=== PATIENT | female | born 1960 | race American Indian/Alaskan Native ===

== ENCOUNTER 2017-12-01 15:40 | Emergency (ER) | payer MEDICARE, OTHER ==
[2017-12-01 15:40] VITALS: BMI 62.9
[2017-12-01 16:07] VITALS: BP 113/77; PULSE 74; RESP 16; TEMP 97.9; O2SAT 98
[2017-12-01] MEDS ORDERED: Sodium Chloride 0.9% 1,000 ML IV SCH (16:30)
[2017-12-01] MEDS ORDERED: Iohexol 300 100 ML IJ ONE (17:32)
[2017-12-01] MEDS ORDERED: Iohexol 240 (50 ml) ONE (17:32)
[2017-12-01 17:45] LABS: BASO # 0.04 K/mm3 (0.0-2.0); BASO % 0.8 % (0.0-3.0); EOS # 0.2 (0.0-0.7); EOS % 3.9 % (1.5-5.0); GRAN # 2.49 (1.4-6.5); GRAN % 48.1 % (50.0-68.0); HEMOGLOBIN 13.2 g/dL (12.0-16.0); LYMPH % 39.1 % (22.0-35.0); MEAN CORPUSCULAR HEMOGLOBIN 26.7 pg (25.0-35.0); MEAN CORPUSCULAR HGB CONC 32.1 g/dl (31.0-37.0); MEAN PLATELET VOLUME 10.3 fl (7.0-11.0); MONO # 0.4 (0.1-0.6); MONO % 8.1 % (1.0-6.0); RBC 4.95 10^6/uL (3.5-6.1); RED CELL DISTRIBUTION WIDTH 14.6 % (11.5-14.5); WHITE BLOOD COUNT 5.2 10^3/ul (4.5-11.0)
[2017-12-01 19:03] LABS: TROPONIN I < 0.01 ng/mL
[2017-12-01 19:05] LABS: URINE BILIRUBIN NEGATIVE (NEGATIVE); URINE BLOOD NEGATIVE (NEGATIVE); URINE GLUCOSE (UA) NEGATIVE (NEGATIVE); URINE LEUKOCYTE ESTERASE NEGATIVE Leu/uL (NEGATIVE); URINE NITRATE NEGATIVE (NEGATIVE); URINE PROTEIN NEGATIVE mg/dL (<30 mg/dL); URINE UROBILINOGEN 0.2 E.U./dL (<1 E.U./dL)
[2017-12-01 19:06] LABS: URINE COLOR YELLOW (YELLOW)
[2017-12-01 19:07] LABS: URINE APPEARANCE CLEAR (CLEAR)
[2017-12-01 19:19] LABS: ALB/GLOB RATIO 1.2 (1.1-1.8); ALBUMIN 4.2 g/dL (3.0-4.8); ALT/SGPT 29 U/L (7-56); AMYLASE 63 U/L (35-125); AST/SGOT 36 U/L (14-36); BLOOD UREA NITROGEN 13 mg/dL (7-21); CALCIUM 9.8 mg/dL (8.4-10.5); GFR AFRICAN-AMERICAN > 60; GFR NON-AFRICAN AMERICAN > 60; LIPASE 114 U/L (23-300)
--- NOTE | 2017-12-01 19:49 | ED PDOC ---
Arrival/HPI - General Chief Complaint: Abdominal Pain Time Seen by Provider: 12/01/17 16:24 Historian: Patient - History of Present Illness Narrative History of Present Illness (Text): 12/01/17 19:46 A 57 year old female presents to the emergency department complaining of diffuse abdominal pain for the past few days. Patient notes nausea and sharp substernal chest pain only after swallowing food. Patient denies any changes in her diet, fever, chills, vomiting, shortness of breath, cough or any other complaints. Patient denies any recent travel. PMD: Dr. Demarco Time/Duration: Other (few days) Symptom Course: Unchanged Quality: Other Context: Home Past Medical History - Provider Review Nursing Documentation Reviewed: Yes - Infectious Disease Hx of Infectious Diseases: None - Tetanus Immunization Tetanus Immunization: Unknown - Reproductive Menopause: Yes - Cardiac Hx Cardiac Disorders: Yes Hx Hypertension: Yes Hx Pacemaker: No - Pulmonary Hx Sleep Apnea: Yes - Neurological Hx Neurological Disorder: No Hx Paralysis: No - HEENT Hx HEENT Disorder: No - Renal Hx Renal Disorder: No - Endocrine/Metabolic Hx Endocrine Disorders: Yes Hx Diabetes Mellitus Type 2: Yes - Hematological/Oncological Hx Blood Disorders: No Hx Blood Transfusions: No Hx Blood Transfusion Reaction: No - Integumentary Hx Dermatological Disorder: No - Musculoskeletal/Rheumatological Hx Musculoskeletal Disorders: No - Gastrointestinal Hx Diverticulitis: Yes - Genitourinary/Gynecological Hx Genitourinary Disorders: No - Psychiatric Hx Psychophysiologic Disorder: Yes Hx Anxiety: Yes Hx Depression: Yes Hx Emotional Abuse: No Hx Physical Abuse: No Hx Substance Use: No - Surgical History Hx Section: Yes Hx Cholecystectomy: Yes Hx Gastric Bypass Surgery: Yes Other/Comment: ovary surgery - Anesthesia Hx Anesthesia: Yes Hx Anesthesia Reactions: No Hx Malignant Hyperthermia: No - Suicidal Assessment Feels Threatened In Home Enviroment: No Family/Social History - Physician Review Nursing Documentation Reviewed: Yes Family/Social History: No Known Family HX Smoking Status: Never Smoked Hx Alcohol Use: No Hx Substance Use: No Hx Substance Use Treatment: No Allergies/Home Meds Allergies/Adverse Reactions: Allergies No Known Allergies Allergy (Verified 12/01/17 16:07) Home Medications: Home Meds Medication Instructions Recorded Confirmed Atorvastatin [Lipitor] 20 mg PO DAILY 04/15/12 12/01/17 Carvedilol [Coreg] 6.25 mg PO BID 04/15/12 12/01/17 Metformin HCl 500 mg PO BID 11/12/12 12/01/17 Omeprazole [PrilOSEC] 40 mg PO DAILY 04/28/15 12/01/17 Gabapentin [Neurontin] 100 mg PO TID 12/01/17 12/01/17 Lisinopril [Zestril] 20 mg PO DAILY 12/01/17 12/01/17 Meloxicam [Mobic] 15 mg PO DAILY 12/01/17 12/01/17 Nortriptyline [Nortriptyline HCl] 10 mg PO HS 12/01/17 12/01/17 Oxybutynin [Oxybutynin Chloride] 10 mg PO BID 12/01/17 12/01/17 PARoxetine [Paxil] 40 mg PO DAILY 12/01/17 12/01/17 clonazePAM [Klonopin] 1 mg PO BID PRN 12/01/17 12/01/17 Review of Systems - Physician Review All systems were reviewed & negative as marked: Yes - Review of Systems Constitutional: absent: Fevers, Night Sweats Respiratory: absent: SOB, Cough Cardiovascular: Chest Pain (only after swallowing food) Gastrointestinal: Abdominal Pain, Nausea. absent: Vomiting, Appetite Changes ( changes in diet) Physical Exam Vital Signs Reviewed: Yes Vital Signs Temp Pulse Resp BP Pulse Ox 12/01/17 16:02 97.9 F 74 16 113/77 98 Temperature: Afebrile Blood Pressure: Normal Pulse: Regular Respiratory Rate: Normal Appearance: Positive for: Well-Appearing, Non-Toxic, Comfortable Pain Distress: None Mental Status: Positive for: Alert and Oriented X 3 - Systems Exam Head: Present: Atraumatic, Normocephalic Pupils: Present: PERRL Extroacular Muscles: Present: EOMI Conjunctiva: Present: Normal Mouth: Present: Moist Mucous Membranes Neck: Present: Normal Range of Motion Respiratory/Chest: Present: Clear to Auscultation, Good Air Exchange. No: Respiratory Distress, Accessory Muscle Use Cardiovascular: Present: Regular Rate and Rhythm, Normal S1, S2. No: Murmurs Abdomen: Present: Tenderness (Mildy diffuse tenderness to palpation), Normal Bowel Sounds. No: Distention, Peritoneal Signs, Rebound, Guarding Back: Present: Normal Inspection Upper Extremity: Present: Normal Inspection. No: Cyanosis, Edema Lower Extremity: Present: Normal Inspection. No: Edema Neurological: Present: GCS=15, CN II-XII Intact, Speech Normal Skin: Present: Warm, Dry, Normal Color. No: Rashes Psychiatric: Present: Alert, Oriented x 3, Normal Insight, Normal Concentration Medical Decision Making ED Course and Treatment: 12/01/17 19:46 Impression: A 57 year old female with diffuse abdominal pain. Patient notes nausea and chest pain only when swallowing food. Plan: -- Abdomen and pelvis CT -- EKG -- Labs -- Urine culture and Urinalysis -- Pepcid, Zofran and IV fluids -- Reassess and disposition Progress Notes: EKG shows NSR at 71 BPM with 1st degree AV block. Interpreted by me. - Lab Interpretations Lab Results: 12/01/17 17:35 12/01/17 18:25 Lab Results 12/01/17 18:43: Urine Color Yellow, Urine Appearance Clear, Urine pH 6.0, Ur Specific Stanford 1.020, Urine Protein Negative, Urine Glucose (UA) Negative, Urine Ketones Negative, Urine Blood Negative, Urine Nitrate Negative, Urine Bilirubin Negative, Urine Urobilinogen 0.2, Ur Leukocyte Esterase Negative 12/01/17 18:25: Sodium 142, Potassium 4.4, Chloride 105, Carbon Dioxide 27, Anion Gap 14, BUN 13, Creatinine 0.8, Est GFR ( Amer) > 60, Est GFR (Non- Af Amer) > 60, Random Glucose 86, Calcium 9.8, Total Bilirubin 0.4, AST 36, ALT 29, Alkaline Phosphatase 130 H D, Lactate Dehydrogenase 699, Total Creatine Kinase 122, Troponin I < 0.01, Total Protein 7.6, Albumin 4.2, Globulin 3.4, Albumin/Globulin Ratio 1.2, Amylase 63, Lipase 114 12/01/17 17:35: WBC 5.2, RBC 4.95, Hgb 13.2, Hct 41.1, MCV 83.0, MCH 26.7, MCHC 32.1, RDW 14.6 H, Plt Count 199, MPV 10.3, Gran % 48.1 L, Lymph % (Auto) 39.1 H , Alfalfa % (Auto) 8.1 H, Eos % (Auto) 3.9, Baso % (Auto) 0.8, Gran # 2.49, Lymph # 2.0, Alfalfa # 0.4, Eos # 0.2, Baso # 0.04 I have reviewed the lab results: Yes - RAD Interpretation Radiology Orders: 12/01/17 16:27 ABDOMEN & PELVIS [ABD PELVIS PO & IV CONTRAST] [CT] Stat - Medication Orders Current Medication Orders: Sodium Chloride (Sodium Chloride 0.9%) 1,000 mls @ 100 mls/hr IV .Q10H JUDIE Last Admin: 12/01/17 18:27 Dose: 100 mls/hr eMAR Start Stop Document 12/01/17 18:27 OCS (Rec: 12/01/17 18:27 OCS [id number]) Intravenous Solution Start Date 12/01/17 Start Time 18:27 Discontinued Medications Famotidine (Pepcid) 20 mg IVP STAT STA Stop: 12/01/17 16:28 Last Admin: 12/01/17 17:31 Dose: 20 mg IVP Administration Document 12/01/17 17:31 OCS (Rec: 12/01/17 17:31 OCS [id number]) Charges for Administration # of IVP Administrations 1 Ondansetron HCl (Zofran Inj) 4 mg IVP STAT STA Stop: 12/01/17 16:28 Last Admin: 12/01/17 17:31 Dose: 4 mg IVP Administration Document 12/01/17 17:31 OCS (Rec: 12/01/17 17:31 OCS [id number]) Charges for Administration # of IVP Administrations 1 - Scribe Statement The provider has reviewed the documentation as recorded by the Tay Lorenz Provider Scribe Attestation: All medical record entries made by the Scribnicole were at my direction and personally dictated by me. I have reviewed the chart and agree that the record accurately reflects my personal performance of the history, physical exam, medical decision making, and the department course for this patient. I have also personally directed, reviewed, and agree with the discharge instructions and disposition. Disposition/Present on Arrival - Present on Arrival Any Indicators Present on Arrival: No History of DVT/PE: No History of Uncontrolled Diabetes: No Urinary Catheter: No History of Decub. Ulcer: No History Surgical Site Infection Following: None - Disposition Have Diagnosis and Disposition been Completed?: Yes Diagnosis: GERD (gastroesophageal reflux disease), Gastritis Disposition: HOME/ ROUTINE Disposition Time: 22:30 Patient Problems: Current Active Problems Problem Status Onset GERD (gastroesophageal reflux disease) Acute Gastritis Acute Condition: IMPROVED Discharge Instructions (ExitCare): Gastritis (ED) Additional Instructions: Thank you for letting us take care of you today. The emergency medical care you received today was directed at your acute symptoms. If you were prescribed any medication, please fill it and take as directed. It may take several days for your symptoms to resolve. Return to the Emergency Department if your symptoms worsen, do not improve, or if you have any other problems. Please contact your doctor or call one of the physicians/clinics you have been referred to that are listed on the Patient Visit Information form that is included in your discharge packet. Bring any paperwork you were given at discharge with you along with any medications you are taking to your follow up visit. Our treatment cannot replace ongoing medical care by a primary care provider (PCP) outside of the emergency department. Thank you for allowing the [facility] team to be part of your care today. Follow up with your doctor in the next 2-3 days for re-evaluation and further management. Prescriptions: Ranitidine HCl [Zantac] 150 mg PO BID #20 tablet Referrals: Nicole Rivera MD [Primary Care Provider] - Follow up with primary Forms: Dweho (Armenian)
--- NOTE | 2017-12-01 21:47 | CARD ---
APPROVED REPORT EKG Measurement Heart [id number] <Conclusion> Sinus rhythm with 1st degree AV block Otherwise normal ECG
--- NOTE | 2017-12-01 22:25 | CT ---
EXAM: CT Abdomen and Pelvis With Intravenous Contrast EXAM DATE/TIME: 12/01/2017 4:27 PM CLINICAL HISTORY: The patient age is 57 years old and is female; Pain; Abdominal pain; Acute; Additional info: Diffuse of abd pain h/o gastric bypass Facility exam id and description: Ct abdpelc abd pelvis po iv contrast TECHNIQUE: Axial computed tomography images of the abdomen and pelvis with intravenous contrast. All CT scans at this facility use one or more dose reduction techniques, viz.: automated exposure control; ma/kV adjustment per patient size (including targeted exams where dose is matched to indication; i.e. head); or iterative reconstruction technique. Coronal and sagittal reformatted images were created and reviewed. CONTRAST: 100 mL of OMNI 350 administered intravenously. COMPARISON: No relevant prior studies available. FINDINGS: Lower thorax: Atelectatic changes are identified within the medial aspect of the right lower lobe. Also in this region on series 3 image 42, there is a nodular consolidation measuring 1.1 cm. Mild atelectatic changes are visualized at the left lung base. There is coronary artery calcification. ABDOMEN: Liver: No mass. Gallbladder and bile ducts: Surgical clips are identified within the gallbladder fossa, compatible with cholecystectomy. Pancreas: Normal contour, without acute peripancreatic stranding. Spleen: No splenomegaly. Adrenals: There is mild nonspecific thickening of the left adrenal gland. Kidneys and ureters: No hydronephrosis. No solid mass. Stomach and bowel: Postoperative changes are identified, consistent with the clinical history of gastric bypass surgery. There is wall thickening of the antrum of the stomach, suggestive of gastritis. Moderate fecal material is identified within the colon. Appendix: No findings to suggest acute appendicitis. PELVIS: Bladder: No mass. Reproductive: Unremarkable as visualized. ABDOMEN and PELVIS: Intraperitoneal space: No free air. Bones/joints: There is mild anterior wedging of the T11 vertebral body, consistent with a compression fracture. The acuity of this finding is indeterminate. Hypertrophic degenerative changes are noted within the spine. Soft tissues: There is a herniation of fat into the umbilicus. Within the musculature of the anterior right thigh, there is another focal 6.9 cm lipomatous mass or lipoma. This extends out of the field of view of this study. Vasculature: There is atherosclerotic calcification of the abdominal aorta. No abdominal aortic aneurysm. Lymph nodes: There is a mildly enlarged left external iliac chain lymph node measuring 1.5 cm in length. Additional small intrapelvic lymph nodes are visualized. No significant retroperitoneal lymphadenopathy. IMPRESSION: 1. Postoperative changes are identified, consistent with the clinical history of gastric bypass surgery. There is wall thickening of the antrum of the stomach, suggestive of gastritis. 2. There is a herniation of fat into the umbilicus. 3. Within the musculature of the anterior right thigh, there is another focal 6.9 cm lipomatous mass or lipoma. This extends out of the field of view of this study. 4. There is mild anterior wedging of the T11 vertebral body, consistent with a compression fracture. The acuity of this finding is indeterminate. Clinical correlation and correlation with prior studies is recommended. 5. There is a mildly enlarged left external iliac chain lymph node measuring 1.5 cm in length. This is nonspecific as to etiology. 6. Atelectatic changes are identified within the medial aspect of the right lower lobe. Also in this region on series 3 image 42, there is a nodular consolidation measuring 1.1 cm. A follow-up chest CT is recommended. 7. Additional CT findings described above.
[2017-12-01] MEDS ORDERED: Iohexol 350 MG/100 ML VIAL ONE (23:24)
== END 2017-12-01 22:30 | disposition home or self-care (01) ==
LOC: ED 15:40
DX: K21.9 Gastro-esophageal reflux disease without esophagitis (principal); K29.70 Gastritis, unspecified, without bleeding; I10 Essential (primary) hypertension; E11.9 Type 2 diabetes mellitus without complications; Z98.84 Bariatric surgery status
CPT/HCPCS: 74177; 80053; 81003; 82150; 82550; 83615; 83690; 84484; 85025; 87086; 93005; 96374; 96375; 99283; J2405; J7040; Q9966; Q9967

== ENCOUNTER 2018-05-12 10:55 | Emergency (ER) | payer MEDICARE, OTHER ==
[2018-05-12 11:20] VITALS: RESP 18; TEMP 97.8; BMI 59.5
[2018-05-12] MEDS ORDERED: Oxycodone/Acetaminophen 5/325 mg Tab PO STA (11:52)
--- NOTE | 2018-05-12 12:02 | ED PDOC ---
Arrival/HPI - General Chief Complaint: Back Pain Time Seen by Provider: 05/12/18 11:49 Historian: Patient - History of Present Illness Narrative History of Present Illness (Text): 05/12/18 12:00 58 year old female, whose PMH includes hypertension, and diabetes, who presents to the emergency department complaining of right lower back pain since 4 months ago. Patient states the pain is daily and at time greater than 10/10. Patient reports movement and walking causes more discomfort and it takes her a couple of minutes in the morning to get ready before she can move around to do her chores. Patient denies any trauma, no radiation down right lower leg, no fever, chills, sweats, chest pain/shortness of breath/palpitations, no abd pain, no n/v , no numbness/tingling; no incontience, no dysuria, urinary bowel changes, vaginal or rectal numbness or tingling. Patient notes she was recently evaluation by Dr. Mckay since November due to abnormal spots found in right femur. 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 She is also complaining of bilateral thigh pain close to one year and patient does not know the results of her recent MRI on her left leg. No other complaints were made. pt is here for further eval PMD: Dr. Vela Neurologist: Dr. Duarte Orthopedic: Dr. Mckay Time/Duration: > month Symptom Onset: Gradual Symptom Course: Unchanged Severity Level: Severe Context: Standing, Walking, Home Past Medical History - Provider Review Nursing Documentation Reviewed: Yes - Travel History Have you recently traveled outside [place] w/in the past 3 mons?: No - Past History Past History: Non-Contributing - Infectious Disease Hx of Infectious Diseases: None - Tetanus Immunization Tetanus Immunization: Unknown - Reproductive Menopause: Yes Currently : No - Cardiac Hx Cardiac Disorders: Yes Hx Hypertension: Yes Hx Pacemaker: No - Pulmonary Hx Sleep Apnea: Yes - Neurological Hx Neurological Disorder: No Hx Paralysis: No - HEENT Hx HEENT Disorder: No - Renal Hx Renal Disorder: No - Endocrine/Metabolic Hx Endocrine Disorders: Yes Hx Diabetes Mellitus Type 2: Yes - Hematological/Oncological Hx Blood Disorders: No Hx Blood Transfusions: No Hx Blood Transfusion Reaction: No - Integumentary Hx Dermatological Disorder: No - Musculoskeletal/Rheumatological Hx Musculoskeletal Disorders: No - Gastrointestinal Hx Diverticulitis: Yes - Genitourinary/Gynecological Hx Genitourinary Disorders: No - Psychiatric Hx Psychophysiologic Disorder: Yes Hx Anxiety: Yes Hx Depression: Yes Hx Emotional Abuse: No Hx Physical Abuse: No Hx Substance Use: No - Surgical History Hx Section: Yes Hx Cholecystectomy: Yes Hx Gastric Bypass Surgery: Yes Other/Comment: ovary surgery - Anesthesia Hx Anesthesia: Yes Hx Anesthesia Reactions: No Hx Malignant Hyperthermia: No - Suicidal Assessment Feels Threatened In Home Enviroment: No Family/Social History - Physician Review Nursing Documentation Reviewed: Yes Family/Social History: Unknown Family HX Smoking Status: Never Smoked Hx Alcohol Use: No Hx Substance Use: No Hx Substance Use Treatment: No Allergies/Home Meds Allergies/Adverse Reactions: Allergies No Known Allergies Allergy (Verified 12/01/17 16:07) Home Medications: Home Meds Medication Instructions Recorded Confirmed Atorvastatin [Lipitor] 20 mg PO DAILY 04/15/12 12/01/17 Carvedilol [Coreg] 6.25 mg PO BID 04/15/12 12/01/17 Metformin HCl 500 mg PO BID 11/12/12 12/01/17 Omeprazole [PrilOSEC] 40 mg PO DAILY 04/28/15 12/01/17 Gabapentin [Neurontin] 100 mg PO TID 12/01/17 12/01/17 Lisinopril [Zestril] 20 mg PO DAILY 12/01/17 12/01/17 Meloxicam [Mobic] 15 mg PO DAILY 12/01/17 12/01/17 Nortriptyline [Nortriptyline HCl] 10 mg PO HS 12/01/17 12/01/17 Oxybutynin [Oxybutynin Chloride] 10 mg PO BID 12/01/17 12/01/17 PARoxetine [Paxil] 40 mg PO DAILY 12/01/17 12/01/17 clonazePAM [Klonopin] 1 mg PO BID PRN 12/01/17 12/01/17 Review of Systems - Review of Systems Constitutional: absent: Fevers Eyes: Normal ENT: Normal Respiratory: absent: SOB Cardiovascular: absent: Chest Pain Gastrointestinal: absent: Abdominal Pain Genitourinary Female: absent: Dysuria, Frequency, Urine Output Changes, Vaginal Discharge Musculoskeletal: Back Pain (lower back pain ), Other (b/l thigh/leg pain) Skin: absent: Rash Neurological: absent: Headache Endocrine: absent: Diaphoresis Hemo/Lymphatic: Normal Psychiatric: Normal Physical Exam - Physical Exam Narrative Physical Exam (Text): 05/12/18 General: alert/awake, GCS = 15, oriented x 3, resting in bed, uncomfortable, cooperative, interactive; mild distress due to pain Head: NC/AT EYE: PERRLA, EOMI, sclera anicteric, no nystagmus, no photophobia; visual field intact b/l Facial: WNL Oral: uvula/tongue are midline, no exudate/lesions, no drooling/stridor, no dysphonia; intact dentitions NECK: intact ROM, no midline tenderness, no nuchal rigidity, no meningeal signs ; no step off Chest: CTA b/l, no w/r/r; no tachypenia, no accessory muscle use noted Chest Wall: no crepitus, no lesions, no gross deformities, no focal tenderness Cardiac: +S1, +S2, no m/r/r, no tachycardia Abdominal: +BS, soft/nd/nt, well nourished patient; no masses/rebound/guarding/ rigidity; no zamarripa's sign, no mcburney's point tenderness Extremities: intact ROM, strength 5/5 grossly intact in all limbs, neurovasc intact b/l; + ambulatory; reflex +2/2; SLR to right leg ~ 35-40 degrees, no pitting edema noted, no doron's sign noted b/l BACK: no step off, no midline tenderness, NO crepitus, no gross deformities noted; Intact ROM SKIN: cap refill < 1 sec, no ulcerations, no petechiae, no rashes; no pallor noted NEURO: CNII-XII WNL, no facial asymmetries, no slurr speech, oriented x 3 NIH stroke scale ~ 0 Psych: normal insight, normal affect; follows command with ease Vital Signs Reviewed: Yes Vital Signs Temp Pulse Resp BP Pulse Ox 05/12/18 16:50 97.8 F 75 18 114/74 96 05/12/18 15:00 75 18 114/74 96 05/12/18 13:46 79 18 111/69 95 05/12/18 11:19 97.8 F 84 18 113/73 95 Temperature: Afebrile Blood Pressure: Normal Pulse: Regular Respiratory Rate: Normal Appearance: Positive for: Well-Appearing, Non-Toxic, Uncomfortable. No: Ill- Appearing, Unkept Pain Distress: Mild Mental Status: Positive for: Alert and Oriented X 3 - Systems Exam Head: Present: Atraumatic, Normocephalic Medical Decision Making ED Course and Treatment: 05/12/18 Impression: right sided back pain x months with abnl femur findings concern for tumor I have considered all Differential Diagnosis regarding pt's chief medical complaints/clinical findings included but are not limited to: r/o lesions, r/o fx; likely musculoskeletal defect Plan: -- CT lumbar spine -- CT thoracic spine -- EKG -- Labs -- Percocet -- Right hip x-ray -- Right Tibia-fibula x-ray -- Urinalysis -- Reassess and disposition Progress Notes: 1400 pt is doing well pt is comfortable pt states the percocet help tremendously pt is awaiting for her diagnostics/labs 05/12/18 14:[address] Esparza, pt's orthopedists, made aware of pt's emergent medical complaints and is in agreement with emergency department mgt/txt; pt can follow up with him or others as an outpt; Dr Esparza is aware that pt is seeking 2nd opinion 05/12/18 14:44 pt remained comfortable, awaiting Urinalysis results 05/12/18 1530 pt remained comfortable pt is made aware of her medical results pt is encouraged to avoid prolonged standing/walking, weight lifting pt is encouraged weight loss pt will follow up as directed pt will be discharged home Re-evaluation Time: 14:36 Reassessment Condition: Improved - Lab Interpretations Lab Results: 05/12/18 11:55 05/12/18 11:55 Lab Results 05/12/18 16:20: Urine Color Yellow, Urine Appearance Clear, Urine pH 7.0, Ur Specific [place] 1.015, Urine Protein Negative, Urine Glucose (UA) Negative, Urine Ketones Negative, Urine Blood Negative, Urine Nitrate Negative, Urine Bilirubin Negative, Urine Urobilinogen 1.0 H, Ur Leukocyte Esterase Negative 05/12/18 13:57: POC Glucose (mg/dL) 75 05/12/18 11:55: Sodium 145, Potassium 4.7, Chloride 107, Carbon Dioxide 31, Anion Gap 13, BUN 14, Creatinine 0.8, Est GFR ( Amer) > 60, Est GFR (Non- Af Amer) > 60, Random Glucose 86, Calcium 9.7, Total Bilirubin 0.4, AST 33, ALT 30, Alkaline Phosphatase 101, Troponin I < 0.01, Total Protein 7.2, Albumin 4.0 , Globulin 3.3, Albumin/Globulin Ratio 1.2, Lipase 86 05/12/18 11:55: PT 11.5, INR 1.00, APTT 30.4 05/12/18 11:55: WBC 4.2 L, RBC 4.95, Hgb 12.8, Hct 40.2, MCV 81.2, MCH 25.9, MCHC 31.8, RDW 14.9 H, Plt Count 195, MPV 9.1, Gran % 52.7, Lymph % (Auto) 38.4 H, [place] % (Auto) 5.8, Eos % (Auto) 2.6, Baso % (Auto) 0.5, Gran # 2.20, Lymph # (Auto) 1.6, [place] # (Auto) 0.2, Eos # (Auto) 0.1, Baso # (Auto) 0.02, ESR 17 I have reviewed the lab results: Yes Interpretation: All labs normal - RAD Interpretation Narrative RAD Interpretations (Text): 05/12/18 13:[address]: Creator : Luc Bryant MD FINDINGS: VERTEBRAE:Unremarkable. No fracture. Normal alignment. DISCS/SPINAL CANAL/NEURAL FORAMINA: L1-2: Unremarkable. L2-3: Unremarkable. L3-4: Unremarkable. L4-5: Moderate facet arthropathy. Bilateral foraminal stenosis L5-S1: Unremarkable. PARASPINAL SOFT TISSUES:Unremarkable. OTHER FINDINGS:Degenerative changes in the sacroiliac joints with vacuum phenomenon IMPRESSION: Facet arthropathy and foraminal stenosis at L4-5. Degenerative changes in the sacroiliac joints. No evidence of metastatic disease 05/12/18 13:35 Hip/Pelvis x-ray: Creator : Luc Bryant MD FINDINGS: BONES: Normal. No fracture. JOINTS: Normal. SOFT TISSUES: Normal. OTHER FINDINGS: None. IMPRESSION: Normal radiographs of right hip. 05/12/18 13:[address]: Creator : Luc Bryant MD FINDINGS: VERTEBRAE: Unremarkable. No fracture. Normal alignment. There is mild curvature of the spine convex to the right with a Francois angle of 14 degrees DISCS/SPINAL CANAL/NEURAL FORAMINA: Within the limits of the CT technique, no disc herniation seen. No central canal or neural foraminal stenosis.. PARASPINAL SOFT TISSUES: Unremarkable. OTHER FINDINGS: Unremarkable. IMPRESSION: No acute findings 05/12/18 13:35 Tibial/Fibula x-ray: Creator : Luc Bryant MD FINDINGS: BONES: No fracture or destructive lesion. JOINT SPACES: Unremarkable. OTHER FINDINGS: None. IMPRESSION: Unremarkable radiographs of the right tibia and fibula. Radiology Orders: 05/12/18 11:50 LUMBAR SPINE W/O CONTRAST [CT] Stat 05/12/18 11:51 THORACIC SPINE W/O CONT [CT] Stat HIP MIN 2V W/ PELVIS RT [RAD] Stat TIBIA FIBULA RIGHT [RAD] Stat Sociology Faculty Member: Radiologist - EKG Interpretation EKG Interpretation (Text): 05/12/18 17:20 Sinus rhythm at 75 bpm with 1st degree av block, LAD, no st-t changes, ABNL EKG ; unchanged compare with old ekg 11/2017 Interpreted by ED Physician: Yes Type: 12 lead EKG Comparison: Similar to previous EKG - Medication Orders Current Medication Orders: Discontinued Medications Oxycodone/Acetaminophen (Percocet 5/325 Mg Tab) 1 tab PO STAT STA Stop: 05/12/18 11:53 Last Admin: 05/12/18 12:11 Dose: 1 tab [facility] Pain Assessment Document 05/12/18 12:11 OCS (Rec: 05/12/18 12:12 [id number] Pain Reassessment Is this a pain reassessment? No Sleep Is patient sleeping during reassessment? No Presence of Pain Presence of Pain Yes Pain Scale Used Pain Scale Used Numeric Location Left, Right or Bilateral Left Upper or Lower Lower Pain Location Body Site Back Description Description Constant Intensity of Pain at present 10 Aggravating Factors ADL's - Scribe Statement The provider has reviewed the documentation as recorded by the Scribe Lisa Pastor Provider Scribe Attestation: All medical record entries made by the Scribe were at my direction and personally dictated by me. I have reviewed the chart and agree that the record accurately reflects my personal performance of the history, physical exam, medical decision making, and the department course for this patient. I have also personally directed, reviewed, and agree with the discharge instructions and disposition. Disposition/Present on Arrival - Present on Arrival Any Indicators Present on Arrival: No History of DVT/PE: No History of Uncontrolled Diabetes: No Urinary Catheter: No History of Decub. Ulcer: No History Surgical Site Infection Following: None - Disposition Have Diagnosis and Disposition been Completed?: Yes Diagnosis: Lumbar strain, Low back pain, Lipoma of lower extremity Disposition: HOME/ ROUTINE Disposition Time: 16:42 Patient Plan: Discharge Condition: STABLE Discharge Instructions (ExitCare): Low Back Pain in Adults, Lipoma , Back Exercises Print Language: DANISH Additional Instructions: Make sure to see your doctor in 1-2 days DRINK PLENTY OF FLUIDS take your medications as prescribed AVOID heavy lifting AVOID prolonged standing weight control is encouraged RETURN TO ED IF worse pain, cant breath, persistent vomiting, high fever >101- 102 for hours, altered behavior, slurr speech, facial changes, focal weakness ( arm/leg or both), unable to urinate, heavy/persistent bleeding, passing out, chest pain, or other medical emergencies Prescriptions: Ibuprofen [Motrin] 400 mg PO TID PRN #30 tab PRN Reason: Pain, Mild (1-3) oxyCODONE/Acetaminophen [Percocet 5/325 mg Tab] 1 tab PO TID PRN #10 tab PRN Reason: Pain, Moderate (4-7) Referrals: [facility] [place] [Outside] - Follow up with primary [facility] [Outside] - Follow up with primary [facility] [Outside] - Follow up with primary Mian Geronimo MD [Staff Provider] - Follow up with primary Luc Flowers DO [Staff Provider] - Follow up with primary Brad Richardson DO [Staff Provider] - Follow up with primary Forms: [facility] (Greek)
--- NOTE | 2018-05-12 12:03 | ED PDOC ---
Arrival/HPI - General Chief Complaint: Back Pain Time Seen by Provider: 05/12/18 11:49 Historian: Patient - History of Present Illness Time/Duration: > month (4-5) Past Medical History - Infectious Disease Hx of Infectious Diseases: None - Tetanus Immunization Tetanus Immunization: Unknown - Reproductive Menopause: Yes - Cardiac Hx Cardiac Disorders: Yes Hx Hypertension: Yes Hx Pacemaker: No - Pulmonary Hx Sleep Apnea: Yes - Neurological Hx Neurological Disorder: No Hx Paralysis: No - HEENT Hx HEENT Disorder: No - Renal Hx Renal Disorder: No - Endocrine/Metabolic Hx Endocrine Disorders: Yes Hx Diabetes Mellitus Type 2: Yes - Hematological/Oncological Hx Blood Disorders: No Hx Blood Transfusions: No Hx Blood Transfusion Reaction: No - Integumentary Hx Dermatological Disorder: No - Musculoskeletal/Rheumatological Hx Musculoskeletal Disorders: No - Gastrointestinal Hx Diverticulitis: Yes - Genitourinary/Gynecological Hx Genitourinary Disorders: No - Psychiatric Hx Psychophysiologic Disorder: Yes Hx Anxiety: Yes Hx Depression: Yes Hx Emotional Abuse: No Hx Physical Abuse: No Hx Substance Use: No - Surgical History Hx Section: Yes Hx Cholecystectomy: Yes Hx Gastric Bypass Surgery: Yes Other/Comment: ovary surgery - Anesthesia Hx Anesthesia: Yes Hx Anesthesia Reactions: No Hx Malignant Hyperthermia: No - Suicidal Assessment Feels Threatened In Home Enviroment: No Family/Social History Smoking Status: Never Smoked Hx Alcohol Use: No Hx Substance Use: No Hx Substance Use Treatment: No Allergies/Home Meds Allergies/Adverse Reactions: Allergies No Known Allergies Allergy (Verified 12/01/17 16:07) Home Medications: Home Meds Medication Instructions Recorded Confirmed Atorvastatin [Lipitor] 20 mg PO DAILY 04/15/12 12/01/17 Carvedilol [Coreg] 6.25 mg PO BID 04/15/12 12/01/17 Metformin HCl 500 mg PO BID 11/12/12 12/01/17 Omeprazole [PrilOSEC] 40 mg PO DAILY 04/28/15 12/01/17 Gabapentin [Neurontin] 100 mg PO TID 12/01/17 12/01/17 Lisinopril [Zestril] 20 mg PO DAILY 12/01/17 12/01/17 Meloxicam [Mobic] 15 mg PO DAILY 12/01/17 12/01/17 Nortriptyline [Nortriptyline HCl] 10 mg PO HS 12/01/17 12/01/17 Oxybutynin [Oxybutynin Chloride] 10 mg PO BID 12/01/17 12/01/17 PARoxetine [Paxil] 40 mg PO DAILY 12/01/17 12/01/17 clonazePAM [Klonopin] 1 mg PO BID PRN 12/01/17 12/01/17 Physical Exam Vital Signs Temp Pulse Resp BP Pulse Ox 05/12/18 11:19 97.8 F 84 18 113/73 95 Medical Decision Making - RAD Interpretation Radiology Orders: 05/12/18 11:50 LUMBAR SPINE W/O CONTRAST [CT] Stat 05/12/18 11:51 THORACIC SPINE W/O CONT [CT] Stat Hip right [HIP MIN 4V W/ PELVIS RT] [RAD] Stat TIBIA FIBULA RIGHT [RAD] Stat - Medication Orders Current Medication Orders: Discontinued Medications Oxycodone/Acetaminophen (Percocet 5/325 Mg Tab) 1 tab PO STAT STA Stop: 05/12/18 11:53 Disposition/Present on Arrival - Present on Arrival History of DVT/PE: No History of Uncontrolled Diabetes: No Urinary Catheter: No History of Decub. Ulcer: No History Surgical Site Infection Following: None - Disposition
[2018-05-12 12:36] LABS: BASO # 0.02 K/mm3 (0.0-2.0); BASO % 0.5 % (0.0-3.0); EOS # 0.1 (0.0-0.7); EOS % 2.6 % (1.5-5.0); GRAN # 2.2 (1.4-6.5); GRAN % 52.7 % (50.0-68.0); HEMOGLOBIN 12.8 g/dL (12.0-16.0); LYMPH # 1.6 (1.2-3.4); LYMPH % 38.4 % (22.0-35.0); MEAN CELL VOLUME 81.2 fl (80.0-105.0); MEAN CORPUSCULAR HEMOGLOBIN 25.9 pg (25.0-35.0); MEAN CORPUSCULAR HGB CONC 31.8 g/dl (31.0-37.0); MEAN PLATELET VOLUME 9.1 fl (7.0-11.0); MONO # 0.2 (0.1-0.6); MONO % 5.8 % (1.0-6.0); RBC 4.95 10^6/uL (3.5-6.1); RED CELL DISTRIBUTION WIDTH 14.9 % (11.5-14.5); WHITE BLOOD COUNT 4.2 10^3/ul (4.5-11.0)
--- NOTE | 2018-05-12 12:51 | CT ---
PROCEDURE: CT Thoracic Spine without contrast HISTORY: right lower back pain, no trauma, right fem tumo COMPARISON: None. TECHNIQUE: Axial computed tomography images were obtained of the thoracic spine without intravenous contrast. Coronal and sagittal reformatted images were created and reviewed. Radiation dose: Total exam DLP = 1214 mGy-cm. This CT exam was performed using one or more of the following dose reduction techniques: Automated exposure control, adjustment of the mA and/or kV according to patient size, and/or use of iterative reconstruction technique. FINDINGS: VERTEBRAE: Unremarkable. No fracture. Normal alignment. There is mild curvature of the spine convex to the right with a Francois angle of 14 degrees DISCS/SPINAL CANAL/NEURAL FORAMINA: Within the limits of the CT technique, no disc herniation seen. No central canal or neural foraminal stenosis.. PARASPINAL SOFT TISSUES: Unremarkable. OTHER FINDINGS: Unremarkable. IMPRESSION: No acute findings
[2018-05-12 12:59] LABS: PARTIAL THROMBOPLASTIN TIME 30.4 Seconds (25.1-36.5); PROTHROMBIN TIME 11.5 SECONDS (9.4-12.5)
--- NOTE | 2018-05-12 13:26 | CT ---
PROCEDURE: CT Lumbar Spine without contrast HISTORY: right back pain, no trauma, right femur tumor COMPARISON: None. TECHNIQUE: Axial computed tomography images were obtained of the lumbar spine without the use of intravenous contrast. Coronal and sagittal reformatted images were created and reviewed. Radiation dose: Total exam DLP = 1442 mGy-cm. This CT exam was performed using one or more of the following dose reduction techniques: Automated exposure control, adjustment of the mA and/or kV according to patient size, and/or use of iterative reconstruction technique. FINDINGS: VERTEBRAE: Unremarkable. No fracture. Normal alignment. DISCS/SPINAL CANAL/NEURAL FORAMINA: L1-2: Unremarkable. L2-3: Unremarkable. L3-4: Unremarkable. L4-5: Moderate facet arthropathy. Bilateral foraminal stenosis L5-S1: Unremarkable. PARASPINAL SOFT TISSUES: Unremarkable. OTHER FINDINGS: Degenerative changes in the sacroiliac joints with vacuum phenomenon IMPRESSION: Facet arthropathy and foraminal stenosis at L4-5 Degenerative changes in the sacroiliac joints. No evidence of metastatic disease
--- NOTE | 2018-05-12 13:33 | RAD ---
PROCEDURE: Radiographs of the right tibia and fibula. HISTORY: few days ago, bumped into a curb R lower leg pain COMPARISON: None available. TECHNIQUE: Frontal and lateral views obtained. FINDINGS: BONES: No fracture or destructive lesion. JOINT SPACES: Unremarkable. OTHER FINDINGS: None. IMPRESSION: Unremarkable radiographs of the right tibia and fibula.
--- NOTE | 2018-05-12 13:34 | RAD ---
PROCEDURE: Right Hip and pelvis Radiographs. HISTORY: right leg pain COMPARISON: None. FINDINGS: BONES: Normal. No fracture. JOINTS: Normal. SOFT TISSUES: Normal. OTHER FINDINGS: None. IMPRESSION: Normal radiographs of right hip.
[2018-05-12 14:34] LABS: ALB/GLOB RATIO 1.2 (1.1-1.8); ALT/SGPT 30 U/L (7-56); AST/SGOT 33 U/L (14-36); BLOOD UREA NITROGEN 14 mg/dL (7-21); CALCIUM 9.7 mg/dL (8.4-10.5); GFR AFRICAN-AMERICAN > 60; GFR NON-AFRICAN AMERICAN > 60; LIPASE 86 U/L (23-300)
[2018-05-12 14:46] LABS: TROPONIN I < 0.01 ng/mL
[2018-05-12 15:07] VITALS: BP 114/74; PULSE 75; O2SAT 96
[2018-05-12 16:37] LABS: URINE BILIRUBIN NEGATIVE (NEGATIVE); URINE BLOOD NEGATIVE (NEGATIVE); URINE GLUCOSE (UA) NEGATIVE (NEGATIVE); URINE LEUKOCYTE ESTERASE NEGATIVE Leu/uL (NEGATIVE); URINE PROTEIN NEGATIVE mg/dL (<30 mg/dL)
[2018-05-12 16:39] LABS: URINE APPEARANCE CLEAR (CLEAR); URINE COLOR YELLOW (YELLOW)
--- NOTE | 2018-05-12 17:54 | CARD ---
APPROVED REPORT EKG Measurement Heart [id number] <Conclusion> Sinus rhythm with 1st degree AV block Possible Left atrial enlargement Borderline ECG
== END 2018-05-12 16:50 | disposition home or self-care (01) ==
LOC: ED 10:55
DX: S39.012A Strain of muscle, fascia and tendon of lower back, initial encounter (principal); X58.XXXA Exposure to other specified factors, initial encounter; Y92.9 Unspecified place or not applicable; D17.23 Benign lipomatous neoplasm of skin and subcutaneous tissue of right leg; I10 Essential (primary) hypertension; E11.9 Type 2 diabetes mellitus without complications

== ENCOUNTER 2018-07-29 06:00 | Day surgery (SDC) | payer MEDICARE, OTHER ==
[2018-07-23 13:31] VITALS: BMI 56.8
[2018-07-29 06:58] VITALS: RESP 18; TEMP 98.6
[2018-07-29] MEDS ORDERED: Iohexol 350mgl/ml 50 ML ONE (06:59)
[2018-07-29] MEDS ORDERED: Iodixanol 320 MG/ML 200 ML BOTTLE IV ONE (06:59)
[2018-07-29] MEDS ORDERED: Phenylephrine 10 mg/ml Inj ONE (06:59)
[2018-07-29] MEDS ORDERED: Nitroglycerin 50mg in D5W 0 MG/0 ML BOTTLE IV ONE (06:59)
[2018-07-29] MEDS ORDERED: Iodixanol 320 MG/ML 100 ML BOTTLE IV ONE (06:59)
[2018-07-29 07:13] LABS: BASO # 0.04 K/mm3 (0.0-2.0); EOS # 0.2 (0.0-0.7); EOS % 4.5 % (1.5-5.0); GRAN # 1.52 (1.4-6.5); GRAN % 38.2 % (50.0-68.0); HEMOGLOBIN 12.3 g/dL (12.0-16.0); LYMPH # 1.9 (1.2-3.4); LYMPH % 48.5 % (22.0-35.0); MEAN CELL VOLUME 80.4 fl (80.0-105.0); MEAN CORPUSCULAR HEMOGLOBIN 25.7 pg (25.0-35.0); MEAN CORPUSCULAR HGB CONC 31.9 g/dl (31.0-37.0); MONO # 0.3 (0.1-0.6); MONO % 7.8 % (1.0-6.0); RBC 4.79 10^6/uL (3.5-6.1); RED CELL DISTRIBUTION WIDTH 14.9 % (11.5-14.5)
[2018-07-29 07:19] LABS: INR 0.99; PARTIAL THROMBOPLASTIN TIME 27.9 Seconds (25.1-36.5); PROTHROMBIN TIME 11.4 SECONDS (9.4-12.5)
[2018-07-29 07:21] LABS: BLOOD UREA NITROGEN 19 mg/dL (7-21); CALCIUM 9.9 mg/dL (8.4-10.5); GFR NON-AFRICAN AMERICAN 57; HDL CHOLESTEROL 59 mg/dL (29-60)
[2018-07-29 07:31] LABS: LDL CHOLESTEROL 37 mg/dL (0-129)
[2018-07-29] MEDS ORDERED: Midazolam 2 MG/2 ML VIAL ONE ×3 (08:00→08:23)
[2018-07-29] MEDS ORDERED: Sodium Chloride 0.9% 1,000 ML IV SCH (09:00)
[2018-07-29 09:41] VITALS: O2SAT 99
--- NOTE | 2018-07-29 10:15 | CARDCATH ---
PROCEDURE DATE: 07/29/2018 CARDIAC CATHETERIZATION HISTORY: The patient is a 58-year-old woman with a history of hypertension, hypercholesterolemia and morbid obesity, who presents with chest pain. A stress test was abnormal. Because of this, a cardiac catheterization was recommended. PROCEDURE: Left heart catheterization with coronary arteriography and left ventriculogram. The right femoral artery was cannulated with a 6-Bulgar[place] sheath. There were no complications. I performed moderate sedation, which included the presence of a trained independent observer that assisted in monitoring the patient's level of consciousness and physiologic status. After administration of Versed and fentanyl, my intra service time was 15 minutes. The findings on catheterization revealed a left ventricle that contracted normally. Estimated ejection fraction of 60%. The left main artery was unremarkable. The LAD and diagonal vessels were free of significant disease. There is diffuse atherosclerosis in her coronary tree. The circumflex artery and obtuse marginal branches revealed diffuse atherosclerosis without critical lesions. The right coronary artery was a dominant vessel and revealed intimal irregularities without critical lesions. Angio-Seal was used to close the femoral artery site. The patient tolerated the procedure well. In summary, the procedure revealed atherosclerosis in the coronary tree, but no critical lesions noted. LV function is normal with an EF of 60%. Given these findings, the patient's treatment should be a daily aspirin and statin therapy and also needs to include a cardiac risk reduction program with weight loss. There is no cardiac contraindications to her planned surgery. Carlito Lorenzo MD
[2018-07-29 14:48] VITALS: BP 106/80
[2018-07-29 14:49] VITALS: PULSE 71
--- NOTE | 2018-07-29 16:11 | CARD ---
APPROVED REPORT Date of service: 07/29/2018 EKG Measurement Heart [id number] [place] [id number] <Conclusion> Sinus rhythm with 1st degree AV block Otherwise normal ECG
== END 2018-07-29 15:30 | disposition home or self-care (01) ==
LOC: SDSVAS 06:00
PROVIDERS: ATTEND Internal Medicine Cardiovascular Disease
DX: I25.10 Atherosclerotic heart disease of native coronary artery without angina pectoris (principal); I10 Essential (primary) hypertension; I44.0 Atrioventricular block, first degree; E78.00 Pure hypercholesterolemia, unspecified; E66.01 Morbid (severe) obesity due to excess calories; Z68.43 Body mass index [BMI] 50.0-59.9, adult
CPT/HCPCS: 36415; 80048; 80061; 85025; 85610; 85730; 86850; 86900; 93005; 93458; 99152; C1760; C1769; C2629; J1644; J2250; J3010; J7030; J7040; Q9966; Q9967

== ENCOUNTER 2018-09-23 16:50 | Emergency (ER) | payer MEDICARE, OTHER ==
[2018-09-23 17:24] VITALS: RESP 18; TEMP 98.6
[2018-09-23 17:43] VITALS: BMI 56.3
--- NOTE | 2018-09-23 17:48 | ED PDOC ---
Arrival/HPI - General Time Seen by Provider: 09/23/18 17:30 Historian: Patient - History of Present Illness Narrative History of Present Illness (Text): 09/23/18 17:45 58-year-old female with Diabetes and hypertension presents complaining to the emergency room of 4 day history of intermittent muscle spasms to her head and face that comes and goes and lasts for 1 minute associated with a mild headache and nausea today. Otherwise patient reports no fever, chills, URI, chest pain, shortness of breath, palpitations, dyspnea, vomiting, abdominal pain, numbness, weakness. Of note patient adds that she was taking metformin for 2 years which was discontinued in May of this year since her A1c had improved to 5.6. PMD Yoli Lorenzo Past Medical History - Past History Past History: Non-Contributing - Infectious Disease Hx of Infectious Diseases: None - Tetanus Immunization Tetanus Immunization: Unknown - Cardiac Hx Pacemaker: No - Pulmonary Hx Sleep Apnea: Yes - Neurological Hx Paralysis: No - HEENT Hx HEENT Disorder: No - Renal Hx Renal Disorder: No - Endocrine/Metabolic Hx Endocrine Disorders: Yes Hx Diabetes Mellitus Type 2: Yes - Hematological/Oncological Hx Blood Transfusions: No Hx Blood Transfusion Reaction: No - Integumentary Hx Dermatological Disorder: No - Musculoskeletal/Rheumatological Hx Musculoskeletal Disorders: Yes - Gastrointestinal Hx Diverticulitis: Yes - Genitourinary/Gynecological Hx Genitourinary Disorders: No - Psychiatric Hx Emotional Abuse: No Hx Physical Abuse: No Hx Substance Use: No - Surgical History Hx Section: Yes Hx Cholecystectomy: Yes Hx Gastric Bypass Surgery: Yes Other/Comment: ovary surgery - Anesthesia Hx Anesthesia Reactions: No Hx Malignant Hyperthermia: No - Suicidal Assessment Feels Threatened In Home Enviroment: No Family/Social History Family/Social History: Unknown Family HX Smoking Status: Never Smoked Hx Alcohol Use: No Hx Substance Use: No Hx Substance Use Treatment: No Allergies/Home Meds Allergies/Adverse Reactions: Allergies No Known Allergies Allergy (Verified 09/23/18 17:43) Home Medications: Home Meds Medication Instructions Recorded Confirmed Atorvastatin [Lipitor] 20 mg PO DAILY 04/15/12 07/29/18 Carvedilol [Coreg] 6.25 mg PO BID 04/15/12 07/29/18 Omeprazole [PrilOSEC] 40 mg PO DAILY 04/28/15 07/29/18 Gabapentin [Neurontin] 300 mg PO TID 12/01/17 07/29/18 Meloxicam [Mobic] 15 mg PO DAILY 12/01/17 07/29/18 PARoxetine [Paxil] 40 mg PO DAILY 12/01/17 07/29/18 clonazePAM [Klonopin] 2 mg PO BID PRN 12/01/17 07/29/18 Lisinopril/Hydrochlorothiazide 1 tab PO DAILY 07/23/18 07/29/18 [Lisinopril-Hctz 10-12.5 mg Tab] hydrOXYzine HCl [Atarax] 50 mg PO BID PRN 07/23/18 07/29/18 Review of Systems - Review of Systems Constitutional: absent: Fatigue, Fevers Respiratory: absent: SOB, Cough Cardiovascular: absent: Chest Pain, Palpitations, Edema Gastrointestinal: Nausea. absent: Abdominal Pain, Vomiting Musculoskeletal: absent: Arthralgias, Back Pain, Neck Pain Skin: absent: Rash, Pruritis, Skin Lesions Neurological: Headache. absent: Dizziness, Focal Weakness, Speech Changes Physical Exam Vital Signs Temp Pulse Resp BP Pulse Ox 09/23/18 17:23 98.6 F 89 18 129/68 97 Temperature: Afebrile Blood Pressure: Normal Pulse: Regular Respiratory Rate: Normal Appearance: Positive for: Well-Appearing, Non-Toxic, Comfortable Pain Distress: None Mental Status: Positive for: Alert and Oriented X 3 - Systems Exam Head: Present: Atraumatic, Normocephalic Pupils: Present: PERRL Extroacular Muscles: Present: EOMI Conjunctiva: Present: Normal Mouth: Present: Moist Mucous Membranes Neck: Present: Normal Range of Motion Respiratory/Chest: Present: Clear to Auscultation, Good Air Exchange. No: Respiratory Distress, Accessory Muscle Use Cardiovascular: Present: Regular Rate and Rhythm, Normal S1, S2. No: Murmurs Abdomen: No: Tenderness, Distention, Peritoneal Signs Back: Present: Normal Inspection Upper Extremity: Present: Normal Inspection. No: Cyanosis, Edema Lower Extremity: Present: Normal Inspection. No: Edema Neurological: Present: GCS=15, CN II-XII Intact, Speech Normal, Motor Func Grossly Intact, Normal Sensory Function Skin: Present: Warm, Dry, Normal Color. No: Rashes Psychiatric: Present: Alert, Oriented x 3, Normal Insight, Normal Concentration Medical Decision Making ED Course and Treatment: 09/23/18 17:49 Plan : - Labs - IV - EKG - CT head - teletypesetter monitor FS : 67 Patient remains AAOx3 in no acute distress. She is refusing any analgesics or anti-nausea medicine. Given 2 cups of orange juice to drink. Repeat FS afterwards was 53. Patient given a meal to eat. EKG : SR at 84 bpm with 1st degree AVB, (-) acute ST changes, as read by PA. CT head : No acute intracranial pathology. Stable cerebellar tonsillar ectopia. No significant interval change. Dictated by Dr. Caesar Hoyos MD. Labs reviewed : glucose 65, rest of the labs wnl. 09/23/18 19:32 On reevaluation, patient remains awake alert and oriented 3 in no acute distress. Patient is smiling and is cheerful, in good spirits. Has no additional complaints. Repeat neuro exam shows no focal findings. Repeat FS 137. Based on history, exam and diagnostic results plan will be for outpatient follow up. Advised to eat dinner tonight and a snack prior to going to bed to avoid hypoglycemia. Advised to follow up with primary care physician in 1-2 days without fail. Return to the emergency room at any time for any new or worsening symptoms. Patient states she fully agrees with and understands discharge instructions. States that she agrees with the plan and disposition. Verbalized and repeated discharge instructions and plan. I have given the patient opportunity to ask any additional questions. - Lab Interpretations Lab Results: Lab Results 09/23/18 17:27: POC Glucose (mg/dL) 67 - RAD Interpretation Radiology Orders: 09/23/18 17:44 HEAD W/O CONTRAST [CT] Stat - PA / BREAKFAST HOST / Resident Statement MD/DO has reviewed & agrees with the documentation as recorded. Disposition/Present on Arrival - Present on Arrival Any Indicators Present on Arrival: No History of DVT/PE: No History of Uncontrolled Diabetes: No Urinary Catheter: No History of Decub. Ulcer: No History Surgical Site Infection Following: None - Disposition Have Diagnosis and Disposition been Completed?: Yes Diagnosis: Hypoglycemia, Headache Disposition: HOME/ ROUTINE Disposition Time: 19:30 Patient Plan: Discharge Condition: STABLE Discharge Instructions (ExitCare): Headache, Adult, Low Blood Sugar, Adult (DC) Additional Instructions: Thank you for letting us take care of you today. You were treated for headache, hypoglycemia. The emergency medical care you received today was directed at your acute symptoms. Return to the Emergency Department if your symptoms worsen, do not improve, or if you have any other problems. Please contact your doctor in 2 days for re-evaluation and follow up. Bring any paperwork you were given at discharge with you along with any medications you are taking to your follow up visit. Our treatment cannot replace ongoing medical care by a primary care provider (PCP) outside of the emergency department. Thank you for allowing the [email or web address] team to be part of your care today. If you had an X-Ray : A Radiologist will review the ED reading if any change in treatment is needed we will contact you. Forms: WORK NOTE
[2018-09-23 18:53] LABS: BASO # 0.03 K/mm3 (0.0-2.0); BASO % 0.5 % (0.0-3.0); EOS # 0.3 (0.0-0.7); EOS % 4.4 % (1.5-5.0); GRAN # 2.81 (1.4-6.5); GRAN % 49.5 % (50.0-68.0); HEMOGLOBIN 12.3 g/dL (12.0-16.0); LYMPH # 2.2 (1.2-3.4); LYMPH % 38.4 % (22.0-35.0); MEAN CELL VOLUME 81.8 fl (80.0-105.0); MEAN CORPUSCULAR HGB CONC 31.8 g/dl (31.0-37.0); MEAN PLATELET VOLUME 8.9 fl (7.0-11.0); MONO # 0.4 (0.1-0.6); MONO % 7.2 % (1.0-6.0); RBC 4.73 10^6/uL (3.5-6.1); RED CELL DISTRIBUTION WIDTH 15.3 % (11.5-14.5); WHITE BLOOD COUNT 5.7 10^3/uL (4.5-11.0)
[2018-09-23 18:57] LABS: ALB/GLOB RATIO 1.2 (1.1-1.8); ALBUMIN 3.9 g/dL (3.0-4.8); ALT/SGPT 32 U/L (7-56); AST/SGOT 38 U/L (14-36); BLOOD UREA NITROGEN 14 mg/dL (7-21); CALCIUM 9.5 mg/dL (8.4-10.5); GFR NON-AFRICAN AMERICAN > 60
--- NOTE | 2018-09-23 19:10 | CT ---
Date of service: 09/23/2018 PROCEDURE: CT HEAD WITHOUT CONTRAST. HISTORY: headache COMPARISON: CT head dated 12/26/2016 TECHNIQUE: Axial computed tomography images were obtained through the head/brain without intravenous contrast. Radiation dose: Total exam DLP = 953.0 mGy-cm. This CT exam was performed using one or more of the following dose reduction techniques: Automated exposure control, adjustment of the mA and/or kV according to patient size, and/or use of iterative reconstruction technique. FINDINGS: HEMORRHAGE: No intracranial hemorrhage. BRAIN: No mass effect or edema. No atrophy or chronic microvascular ischemic changes. Bilateral cerebellar tonsillar ectopia. VENTRICLES: Unremarkable. No hydrocephalus. CALVARIUM: Unremarkable. PARANASAL SINUSES: Left sphenoid sinus opacification.. MASTOID AIR CELLS: Unremarkable as visualized. No inflammatory changes. OTHER FINDINGS: None. IMPRESSION: No acute intracranial pathology. Stable cerebellar tonsillar ectopia. No significant interval change.
[2018-09-23 20:18] VITALS: BP 125/63; PULSE 84; O2SAT 100
--- NOTE | 2018-09-24 13:35 | CARD ---
APPROVED REPORT Date of service: 09/23/2018 EKG Measurement Heart [id number] <Conclusion> Sinus rhythm with 1st degree AV block Borderline ECG
== END 2018-09-23 20:17 | disposition home or self-care (01) ==
LOC: ED 16:50
DX: E11.649 Type 2 diabetes mellitus with hypoglycemia without coma (principal); R51 Headache; I10 Essential (primary) hypertension

== ENCOUNTER 2018-11-01 08:31 | Emergency (ER) | payer MEDICARE, OTHER ==
[2018-11-01 08:44] VITALS: BMI 56.9
[2018-11-01 08:45] VITALS: TEMP 97.7; O2SAT 100
[2018-11-01] MEDS ORDERED: Lidocaine 5% Patch TD STA (09:27)
--- NOTE | 2018-11-01 09:51 | ED PDOC ---
Arrival/HPI - General Chief Complaint: Upper Extremity Problem/Injury Time Seen by Provider: 11/01/18 08:43 Historian: Patient - History of Present Illness Narrative History of Present Illness (Text): 11/01/18 09:43 A 58 year old female, whose past medical history includes hypertension, arthritis, anxiety and depression (takes medications for), presents to the emergency department complaining of right arm pain upon waking up this morning, as patient believes she may have injured her arm while asleep. Patient reports pain starts at the right shoulder, and radiates up the right neck, and down the right arm. Mentions right hand fingers became cold as well. Sates never having this pain before. Patient denies any chest pain, shortness of breath, or any other complaints at this time. Also, patient notes she was taking diabetes medication, however has been taken off it 3 months ago to have insulin monitored as diabetes was better controlled. PMD: Dr. Rivera Past Medical History - Provider Review Nursing Documentation Reviewed: Yes - Past History Past History: Non-Contributing - Infectious Disease Hx of Infectious Diseases: None - Tetanus Immunization Tetanus Immunization: Unknown - Cardiac Hx Cardiac Disorders: No - Pulmonary Hx Respiratory Disorders: Yes Hx Sleep Apnea: Yes - Neurological Hx Neurological Disorder: No - HEENT Hx HEENT Disorder: No - Renal Hx Renal Disorder: No - Endocrine/Metabolic Hx Endocrine Disorders: Yes Hx Diabetes Mellitus Type 2: Yes - Hematological/Oncological Hx Blood Disorders: No - Integumentary Hx Dermatological Disorder: No - Musculoskeletal/Rheumatological Hx Musculoskeletal Disorders: Yes - Gastrointestinal Hx Gastrointestinal Disorders: Yes Hx Diverticulitis: Yes - Genitourinary/Gynecological Hx Genitourinary Disorders: No - Psychiatric Hx Psychophysiologic Disorder: No Hx Substance Use: No - Surgical History Hx Section: Yes Hx Cholecystectomy: Yes Hx Gastric Bypass Surgery: Yes Other/Comment: ovary surgery - Anesthesia Hx Anesthesia Reactions: No Hx Malignant Hyperthermia: No - Suicidal Assessment Feels Threatened In Home Enviroment: No Family/Social History - Physician Review Nursing Documentation Reviewed: Yes Family/Social History: No Known Family HX Smoking Status: Never Smoked Hx Alcohol Use: No Hx Substance Use: No Hx Substance Use Treatment: No Allergies/Home Meds Allergies/Adverse Reactions: Allergies No Known Allergies Allergy (Verified 11/01/18 08:52) Home Medications: Home Meds Medication Instructions Recorded Confirmed RX: Atorvastatin [Lipitor] 20 mg PO DAILY 05/24/12 09/06/18 RX: Carvedilol [Coreg] 6.25 mg PO BID 04/15/12 07/29/18 RX: Omeprazole [PrilOSEC] 40 mg PO DAILY 04/28/15 07/29/18 Meloxicam [Mobic] 15 mg PO DAILY 12/01/17 07/29/18 PARoxetine [Paxil] 40 mg PO DAILY 12/01/17 07/29/18 RX: Gabapentin [Neurontin] 300 mg PO TID 12/01/17 07/29/18 RX: clonazePAM [Klonopin] 2 mg PO BID PRN 12/01/17 07/29/18 Lisinopril/Hydrochlorothiazide 1 tab PO DAILY 07/23/18 07/29/18 [Lisinopril-Hctz 10-12.5 mg Tab] hydrOXYzine HCl [Atarax] 50 mg PO BID PRN 07/23/18 07/29/18 Review of Systems - Physician Review All systems were reviewed & negative as marked: Yes - Review of Systems Respiratory: absent: SOB Cardiovascular: absent: Chest Pain Musculoskeletal: Other (right shoudler pain radiating to right-side neck, down right arm, and mentions right hand fingers are cold.) Physical Exam - Physical Exam Narrative Physical Exam (Text): Gen: VS reviewed, alert, well developed, well nourished, nontoxic, mild distress . ENT: normal pharynx. Eye: EOMI, PERRL. Neck: no JVD, supple, no adenopathy. CV: regular rate, regular rhythm, no rubs, no murmur, no gallops, S1, S2, pulses equal and strong. Pulm: no distress, clear to auscultation, no wheeze, no rhonchi, breath sounds equal, no rales. Abd: soft, nontender, no guarding, no rebound, no rigidity, normal bowel sounds. Ext: no edema. diffuse tenderness to right should, right bicep barrier, significant diminished ROM to right shoulder secondary to pain, neurovascularly intact. Skin: good color, no rash, no cyanosis. Psych: responds appropriately to questions, normal affect. Neuro: oriented x 3, CN2-12 intact grossly, motor intact, sensation intact. Vital Signs Reviewed: Yes Vital Signs Temp Pulse Resp BP Pulse Ox 11/01/18 08:44 97.7 F 77 20 160/93 H 100 Temperature: Afebrile Blood Pressure: Normal Pulse: Regular Respiratory Rate: Normal Appearance: Positive for: Well-Appearing, Non-Toxic, Comfortable Pain Distress: None Mental Status: Positive for: Alert and Oriented X 3 Finger Stick Blood Glucose: 96 Medical Decision Making ED Course and Treatment: 11/01/18 09:47 Impression: 58 year old female with right shoulder pain radiating up right-side neck, and down right arm. Plan: -- Right Shoulder X-Ray -- Tylenol -- Toradol -- Lidoderm -- Arm Sling -- Reassess and disposition Progress Notes: 11/01/18 13:[address] herman, recommends sling and close outpt follow up tomorrow. 11/01/18 15:14 patient clearly denies any trauma associated with this arm pain and fracture. patient has been provided arm sling for comfort, she will make an appt with ortho for tomorrow, patient has tolerated percocet in the past. - Lab Interpretations Lab Results: Lab Results 11/01/18 08:52: POC Glucose (mg/dL) 96 - RAD Interpretation Radiology Orders: 11/01/18 09:28 SHOULDER RIGHT [RAD] Stat - Medication Orders Current Medication Orders: Discontinued Medications Acetaminophen (Tylenol 325mg Tab) 975 mg PO STAT STA Stop: 11/01/18 09:28 Ketorolac Tromethamine (Toradol) 60 mg IM STAT STA Stop: 11/01/18 09:28 Lidocaine (Lidoderm) 1 ea TD DAILY STA Stop: 11/01/18 09:28 - Scribe Statement The provider has reviewed the documentation as recorded by the Tay Valdovinos Provider Scribe Attestation: All medical record entries made by the Marcianoibnicole were at my direction and personally dictated by me. I have reviewed the chart and agree that the record accurately reflects my personal performance of the history, physical exam, medical decision making, and the department course for this patient. I have also personally directed, reviewed, and agree with the discharge instructions and disposition. Disposition/Present on Arrival - Present on Arrival Any Indicators Present on Arrival: No History of DVT/PE: No History of Uncontrolled Diabetes: No Urinary Catheter: No History of Decub. Ulcer: No History Surgical Site Infection Following: None - Disposition Have Diagnosis and Disposition been Completed?: Yes Diagnosis: Greater tuberosity of humerus fracture Disposition: HOME/ ROUTINE Disposition Time: 15:15 Patient Plan: Discharge Condition: STABLE Discharge Instructions (ExitCare): Upper Arm Fracture Additional Instructions: Follow up with the orthopedic surgeon tomorrow. DIRK PEARCE, thank you for letting us take care of you today. Your provider was Dr. Kenneth Tristan and you were treated for right upper arm fracture. The emergency medical care you received today was directed at your acute symptoms. If you were prescribed any medication, please fill it and take as directed. It may take several days for your symptoms to resolve. Return to the Emergency Department if your symptoms worsen, do not improve, or if you have any other problems. Please contact your doctor or call one of the physicians/clinics you have been referred to that are listed on the Patient Visit Information form that is included in your discharge packet. Bring any paperwork you were given at discharge with you along with any medications you are taking to your follow up visit. Our treatment cannot replace ongoing medical care by a primary care provider outside of the emergency department. Thank you for allowing the [facility] team to be part of your care today. If you had an X-Ray or CT scan: A Radiologist will review the ED reading if any change in treatment is needed we will contact you. If you had a blood, urine, or wound culture: It will take several days for the results, if any change in treatment is needed we will contact you. If you had an STI test: It will take 48 hours for the results. Please call after 1 week if you have not heard back. Prescriptions: oxyCODONE/Acetaminophen [Percocet 5/325 mg Tab] 1 ea PO Q6H #20 tab Sennosides/Docusate Sodium [Colace 2-in-1 Tablet] 2 each PO BID 7 Days #14 tablet Referrals: Nicole Rivera MD [Primary Care Provider] - Follow up with primary Emilio Herman III, MD [Medical Doctor] - Follow up with primary [facility] [Outside] - Follow up with primary Forms: [employer])
[2018-11-01 10:59] VITALS: RESP 18
--- NOTE | 2018-11-01 12:58 | RAD ---
Date of service: 11/01/2018 PROCEDURE: Radiographs of the Right Shoulder HISTORY: pain COMPARISON: No prior. FINDINGS: BONES: Focal bony destruction and possible fracture at the lateral aspect of the right femoral head at and adjacent to the greater tuberosity. There is a suspicious for lucency at the inferior aspect of the glenoid fossa. The possibility of a fracture or also cannot be excluded. JOINTS: Arthritic degenerative changes is noted. SOFT TISSUES: Soft tissue swelling noted. OTHER FINDINGS: None. IMPRESSION: Focal bony destruction and acute fracture noted at the lateral aspect of the right humeral head. Questionable fracture at the inferior aspect of the glenoid fossa. Further evaluation by CT is recommended. Correlate clinically for possible recent trauma..
--- NOTE | 2018-11-01 14:43 | CT ---
Date of service: 11/01/2018 PROCEDURE: CT of the right shoulder without contrast HISTORY: fracture COMPARISON: Comparison is made with the previous same-day x-ray of the right shoulder. TECHNIQUE: Axial and reformatted coronal and sagittal CT images of the right shoulder were obtained without IV contrast administration. Total exam DLP: 515.6. FINDINGS: There is a acute comminuted and distracted fracture at lateral aspect of the right humeral head involving the greater tuberosity. There is a displacement of bony fragment from the greater tuberosity measures 2.7 x 1.9 centimeter. There are also adjacent bony fragments. The possibility of of a mercado of the rotator cuff tendons also should be considered. There is acute comminuted and mildly displaced fracture involving the mid and lower portion of the glenoid fossa. There are adjacent small bony fragment in the glenohumeral joint. The acromioclavicular joint is intact. There is no evidence of dislocation at the glenohumeral joint. There is high attenuation joint effusion suggestive of hemarthrosis. There is also hematoma adjacent to the right humeral head. IMPRESSION: Acute comminuted distracted fracture at the lateral aspect of the right humeral head associated with displacement of bony fragment measures 2.7 x 1.9 centimeter which includes the greater tuberosity and adjacent portion of the humeral head. Acute comminuted and slightly displaced fracture involving the mid and lower portion of the glenoid fossa. No evidence of dislocation.
[2018-11-01 15:39] VITALS: BP 152/74; PULSE 65
== END 2018-11-01 15:39 | disposition home or self-care (01) ==
LOC: ED 08:31
DX: S42.251A Displaced fracture of greater tuberosity of right humerus, initial encounter for closed fracture (principal); X58.XXXA Exposure to other specified factors, initial encounter; Y92.9 Unspecified place or not applicable
CPT/HCPCS: 29240; 73030; 73200; 82948; 96372; 99284; J1885

== ENCOUNTER 2019-02-16 12:54 | Emergency (ER) | payer MEDICARE, OTHER ==
[2019-02-16 12:54] VITALS: BMI 56.9
[2019-02-16] MEDS ORDERED: Aspirin 325 mg EC Tablets PO STA (13:22)
--- NOTE | 2019-02-16 13:55 | ED PDOC ---
Arrival/HPI - General Chief Complaint: Chest Pain Time Seen by Provider: 02/16/19 12:55 Historian: Patient - History of Present Illness Narrative History of Present Illness (Text): 02/16/19 13:20 59 year old F with pmh of AV malformation, diabetes, hypertension, anxiety presents complaining of intermittent chest pain and shortness of breath [id number]. Patient associates chest pain with her anxiety she has due to her recent diagn oses of leg tumors. She says the pain is vague and not pressure like. No MANE. No worsening leg swelling. On 11/01/18, patient reported with a right arm pain upon waking up this morning and diagnosed with a Greater tuberosity of humerus fracture. She was given sling and told to follow up with orthopedic surgeon the following day. On 2017, patient recalls being seen by Dr. Lorenzo who performed a stress test and cath on her which came out clear. Patient denies any fevers, chills, headache, dizziness, abdominal pain, nausea, vomiting, diarrhea, or any other complaint. PCP: Dr. Rivera Time/Duration: > week Symptom Course: Unchanged Activities at Onset: Light Context: Home Past Medical History - Provider Review Nursing Documentation Reviewed: Yes - Past History Past History: Non-Contributing - Infectious Disease Hx of Infectious Diseases: None - Tetanus Immunization Tetanus Immunization: Unknown - Cardiac Hx Cardiac Disorders: No - Pulmonary Hx Respiratory Disorders: Yes Hx Sleep Apnea: Yes - Neurological Hx Neurological Disorder: No - HEENT Hx HEENT Disorder: No - Renal Hx Renal Disorder: No - Endocrine/Metabolic Hx Endocrine Disorders: Yes Hx Diabetes Mellitus Type 2: Yes - Hematological/Oncological Hx Blood Disorders: No - Integumentary Hx Dermatological Disorder: No - Musculoskeletal/Rheumatological Hx Musculoskeletal Disorders: Yes - Gastrointestinal Hx Gastrointestinal Disorders: Yes Hx Diverticulitis: Yes - Genitourinary/Gynecological Hx Genitourinary Disorders: No - Psychiatric Hx Psychophysiologic Disorder: No Hx Substance Use: No - Surgical History Hx Section: Yes Hx Cholecystectomy: Yes Hx Gastric Bypass Surgery: Yes Other/Comment: ovary surgery - Anesthesia Hx Anesthesia: Yes Hx Anesthesia Reactions: No Hx Malignant Hyperthermia: No - Suicidal Assessment Feels Threatened In Home Enviroment: No Family/Social History - Physician Review Nursing Documentation Reviewed: Yes Family/Social History: Unknown Family HX Smoking Status: Never Smoked Hx Alcohol Use: No Hx Substance Use: No Hx Substance Use Treatment: No Allergies/Home Meds Allergies/Adverse Reactions: Allergies No Known Allergies Allergy (Verified 11/01/18 08:52) Home Medications: Home Meds Medication Instructions Recorded Confirmed Atorvastatin [Lipitor] 20 mg PO DAILY 04/15/12 07/29/18 Carvedilol [Coreg] 6.25 mg PO BID 04/15/12 07/29/18 Omeprazole [PrilOSEC] 40 mg PO DAILY 04/28/15 07/29/18 Gabapentin [Neurontin] 300 mg PO TID 12/01/17 07/29/18 Meloxicam [Mobic] 15 mg PO DAILY 12/01/17 07/29/18 PARoxetine [Paxil] 40 mg PO DAILY 12/01/17 07/29/18 clonazePAM [Klonopin] 2 mg PO BID PRN 12/01/17 07/29/18 Lisinopril/Hydrochlorothiazide 1 tab PO DAILY 07/23/18 07/29/18 [Lisinopril-Hctz 10-12.5 mg Tab] hydrOXYzine HCl [Atarax] 50 mg PO BID PRN 07/23/18 07/29/18 Review of Systems - Physician Review All systems were reviewed & negative as marked: Yes - Review of Systems Constitutional: Normal. absent: Fevers Eyes: Normal ENT: Normal Respiratory: SOB Cardiovascular: Chest Pain Gastrointestinal: Normal Genitourinary Female: Normal Musculoskeletal: Arthralgias (Right shoulder) Skin: Normal Neurological: Normal Endocrine: Normal Hemo/Lymphatic: Normal Psychiatric: Normal Physical Exam Vital Signs Reviewed: Yes Temperature: Afebrile Blood Pressure: Normal Pulse: Regular Respiratory Rate: Normal Appearance: Positive for: Well-Appearing, Non-Toxic, Comfortable Pain Distress: Mild Mental Status: Positive for: Alert and Oriented X 3 - Systems Exam Head: Present: Atraumatic, Normocephalic Pupils: Present: PERRL Extroacular Muscles: Present: EOMI Conjunctiva: Present: Normal Mouth: Present: Moist Mucous Membranes Neck: Present: Normal Range of Motion Respiratory/Chest: Present: Clear to Auscultation, Good Air Exchange. No: Respiratory Distress, Accessory Muscle Use, Wheezes, Decreased Breath Sounds, Rales, Retracting, Rhonchi, Tachypneic Cardiovascular: Present: Regular Rate and Rhythm, Normal S1, S2. No: Murmurs Abdomen: No: Tenderness, Distention, Peritoneal Signs Back: Present: Normal Inspection Upper Extremity: Present: Tenderness (Right shoulder). No: Cyanosis, Edema Lower Extremity: Present: Normal Inspection, Edema (b/l) Neurological: Present: GCS=15, CN II-XII Intact, Speech Normal, Motor Func Grossly Intact, Normal Sensory Function Skin: Present: Warm, Dry, Normal Color. No: Rashes Psychiatric: Present: Alert, Oriented x 3, Normal Insight, Normal Concentration Medical Decision Making ED Course and Treatment: 02/16/19 13:18 Impression: 59 year old F presents complaining of intermittent chest pain and shortness of breath [id number] Differential Diagnosis included but are not limited to: Chest Pain r/o PE r/o ACS r/o Anxiety Plan: -- Labs -- EKG -- Chest X-ray -- Ecotrin -- Activan -- Reassess and disposition Prior Visits: Notes and results from previous visits were reviewed. Progress Notes: 02/16/19 13:22 Chest x-ray -- No active disease 02/16/19 14:22 EKG, read by me NSR @ 81 bpm, nml qrs, nml axis, no acute sttw abn. Accession No. : [id number] Patient Name / ID : RAMSES CAVAZOS / [id number] Exam Date : 02/16/2019 16:49:55 ( Approved ) CTA chest PE protocol Indication: sob r/o PE Impression: No large central or segmental pulmonary embolus identified. No focal consolidation identified. Heterogeneous appearance of the included portions inferior thyroid gland. Suggest further evaluation with outpatient thyroid ultrasound if indicated. Cardiomegaly. 02/16/19 18:03 Patient states that her symptoms went away after the ativan so she feels like it's her anxiety. Patient current symptoms have been going on for over 3 hours so will not do a 2nd now and also because the patient does not want more blood work. Her recent records show a cardiac cath by Dr. Lorenzo that was reviewed by me and just recommended medical management. She has an appointment with Dr. Aviles February 24. She will make sure she follows up and will return if her symptoms worsen or any concerns. - RAD Interpretation Radiology Orders: 02/16/19 13:22 CHEST PORTABLE [RAD] Stat - Medication Orders Current Medication Orders: Discontinued Medications Aspirin (Ecotrin) 325 mg PO STAT STA Stop: 02/16/19 13:23 Lorazepam (Ativan) 1 mg PO ONCE ONE; Protocol Stop: 02/16/19 13:23 KEITH Risk Score for UA/NSTEMI - KEITH Risk Score Age > 64: NO 3 or more CAD Risk Factors: YES Known CAD (Stenosis greater than 50%): NO Aspirin use in past 7 days: NO Severe Angina: NO EKG ST changes greater than 0.5mm: NO Positive Cardiac Marker: NO KEITH Score: 1 % risk at 14 days of: all cause mortality, new or recurrent SC, or severe recurrent ischemia requiring urgen revascularization: 5% - Scribe Statement The provider has reviewed the documentation as recorded by the Tay Stout All medical record entries made by the Marcianoibnicole were at my direction and personally dictated by me. I have reviewed the chart and agree that the record accurately reflects my personal performance of the history, physical exam, medical decision making, and the department course for this patient. I have also personally directed, reviewed, and agree with the discharge instructions and disposition. Disposition/Present on Arrival - Present on Arrival Any Indicators Present on Arrival: No History of DVT/PE: No History of Uncontrolled Diabetes: No Urinary Catheter: No History of Decub. Ulcer: No History Surgical Site Infection Following: None - Disposition Have Diagnosis and Disposition been Completed?: Yes Diagnosis: Chest pain, Anxiety Disposition: HOME/ ROUTINE Disposition Time: 18:09 Patient Problems: Current Active Problems Problem Status Onset Anxiety Acute Chest pain Acute Condition: IMPROVED Discharge Instructions (ExitCare): Chest Pain (ED) Referrals: Nicole Rivera MD [Primary Care Provider] - Follow up with primary Forms: [employer] ([place]se), WORK NOTE
[2019-02-16 14:32] LABS: BASO # 0.03 K/mm3 (0.0-2.0); BASO % 0.6 % (0.0-3.0); EOS # 0.1 (0.0-0.7); LYMPH # 1.6 (1.2-3.4); LYMPH % 34.5 % (22.0-35.0); MEAN CORPUSCULAR HEMOGLOBIN 24.5 pg (25.0-35.0); MEAN PLATELET VOLUME 8.8 fl (7.0-11.0); MONO # 0.2 (0.1-0.6); MONO % 4.9 % (1.0-6.0); RBC 4.9 10^6/uL (3.5-6.1); RED CELL DISTRIBUTION WIDTH 15.5 % (11.5-14.5); WHITE BLOOD COUNT 4.7 10^3/uL (4.5-11.0)
--- NOTE | 2019-02-16 14:33 | RAD ---
Date of service: 02/16/2019 HISTORY: cp and sob COMPARISON: 06/06/2015 TECHNIQUE: 1 view obtained. FINDINGS: LUNGS: No active pulmonary disease. PLEURA: No significant pleural effusion identified, no pneumothorax apparent. CARDIOVASCULAR: No aortic atherosclerotic calcification present. Normal cardiac size. No pulmonary vascular congestion. OSSEOUS STRUCTURES: No significant abnormalities. VISUALIZED UPPER ABDOMEN: Normal. OTHER FINDINGS: None. IMPRESSION: No active disease.
[2019-02-16 14:39] LABS: BLOOD UREA NITROGEN 13 mg/dL (7-21); CALCIUM 9.8 mg/dL (8.4-10.5); GFR NON-AFRICAN AMERICAN > 60
[2019-02-16 14:53] LABS: B-TYPE NATRIURETIC PEPTIDE 60.5 pg/mL (0-450); TROPONIN I < 0.01 ng/mL
[2019-02-16 14:56] LABS: INR 1.05; PARTIAL THROMBOPLASTIN TIME 31.2 Seconds (26.9-38.3); PROTHROMBIN TIME 11.6 SECONDS (9.4-12.5)
[2019-02-16] MEDS ORDERED: Iodixanol 320 mg/ml 150 ml Bottle IV ONE (16:23)
--- NOTE | 2019-02-16 17:34 | CT ---
Date of service: 02/16/2019 CTA chest PE protocol Indication: sob r/o PE Technique: Contiguous axial images were obtained through the chest with intravenous contrast enhancement. Sagittal and coronal reconstructions were generated and reviewed. This CT exam was performed using 1 or more of the following dose reduction techniques: Automated exposure control, adjustment of the MAA and/or kV according to patient size, and/or use of iterative reconstruction technique. IV contrast: Visipaque 320 IV Radiation dose (DLP): 490.94 MGy-cm. Comparison: Chest x-ray performed 02/16/19 Findings: Visualized portions of the inferior thyroid gland appear heterogeneous. The mediastinal and hilar vascular structures appear within normal limits. Cardiomegaly. Atherosclerotic calcifications of the aorta. No large central or segmental pulmonary embolus evident. No focal consolidation. No pleural effusion. No pneumothorax. No suspicious pulmonary nodules measuring greater than 5 mm. Limited visualized portions of the upper abdomen demonstrates cholecystectomy. Hypoattenuation of the liver compatible with hepatic steatosis. Postsurgical gastric changes. Scoliosis. Degenerative changes. Impression: No large central or segmental pulmonary embolus identified. No focal consolidation identified. Heterogeneous appearance of the included portions inferior thyroid gland. Suggest further evaluation with outpatient thyroid ultrasound if indicated. Cardiomegaly.
[2019-02-16 18:20] VITALS: RESP 18; TEMP 98.6; O2SAT 98
[2019-02-16 18:21] VITALS: BP 130/60; PULSE 86
--- NOTE | 2019-02-16 18:45 | CARD ---
APPROVED REPORT Date of service: 02/16/2019 EKG Measurement Heart [id number] <Conclusion> Normal sinus rhythm Possible Left atrial enlargement Borderline ECG
== END 2019-02-16 18:40 | disposition home or self-care (01) ==
LOC: ED 12:54
DX: F41.9 Anxiety disorder, unspecified (principal); R07.9 Chest pain, unspecified; E11.9 Type 2 diabetes mellitus without complications; I10 Essential (primary) hypertension; Z98.84 Bariatric surgery status
CPT/HCPCS: 71045; 71275; 80048; 82550; 83615; 83735; 83880; 84484; 85025; 85378; 85610; 85730; 93005; 99283; Q9967